=== PATIENT | male | born 1945 | race Caucasian/White ===

== ENCOUNTER 2017-05-06 13:03 | Inpatient (IN) | payer MEDICARE, BC ==
[2017-05-06] MEDS ORDERED: Furosemide 40 MG/4 ML VIAL IVPUSH ONE (13:08)
[2017-05-06] MEDS ORDERED: Sodium Chloride 0.9% 10 ML Syringe FLUSH PRN ×2 (13:08→18:09)
[2017-05-06] MEDS ORDERED: Furosemide 40 MG/4 ML VIAL ONE ×2 (13:09→13:11)
[2017-05-06] MEDS ORDERED: Nitroglycerin 0.4 MG Tab.SL SL ONE (13:14)
[2017-05-06] MEDS ORDERED: Albuterol/Ipratropium 3.0-0.5 MG/3 ML Neb Soln NEB ONE (13:23)
[2017-05-06] MEDS ORDERED: Albuterol/Ipratropium 3.0-0.5 MG/3 ML Neb Soln ONE (13:27)
--- NOTE | 2017-05-06 13:31 | EDM.PDOC ---
ED HPI GENERAL MEDICAL PROBLEM - General Chief Complaint: Cardiovascular Problem Stated Complaint: SOB Time Seen by Provider: 05/06/17 13:03 Source of Information: Reports: Patient, RN Notes Reviewed - History of Present Illness INITIAL COMMENTS - FREE TEXT/NARRATIVE: 71-year-old male has been brought in by private vehicle for difficulty breathing. The information I have is that he was pulled over at the side of the road or street sitting in his car. A bystander stop to check on him, observe that he was in respiratory distress and brought him here to the ED front entrance. Patient arrives very short of breath. Because of his severe difficulty breathing the history I am getting from him is quite limited at this time. This apparently just started not too long ago. He is Reported to be from [place] about 80 miles away from here. It is not clear at this time what brought him here to [place], perhaps came to watch the parade. He denies chest pain. He states that he has had some cough this morning. Rarely this all has just come on over the past 1-2 hours. He does admit to taking a water pill. He states he did take that today. At this time we do not know his meds. He gets those filled out of [facility]s is reportedly "on her way ". - Related Data Home Meds: Home Meds Albuterol [Proventil HFA] 6.7 gm INH Q4H PRN 05/06/17 [History] Allopurinol [Zyloprim] 100 mg PO DAILY 05/06/17 [History] Amiodarone [Cordarone] 200 mg PO DAILY 05/06/17 [History] Apixaban [Eliquis] 5 mg PO BID 05/06/17 [History] Ascorbic Acid [Vitamin C] 500 mg PO DAILY 05/06/17 [History] Aspirin [Halfprin] 81 mg PO DAILY 05/06/17 [History] Calcium Carbonate/Vitamin D2 [Calcium Oys Shell 250 MG] 1 each PO DAILY [History] [place] 1,000 mg PO DAILY 05/06/17 [History] Cinnamon Bark/Chromium Picolin [Cinnamon Plus Chromium Capsule] 1 each PO DAILY 05/06/17 [History] Ferrous Sulfate 325 mg PO DAILY 05/06/17 [History] Flaxseed Oil 1,000 mg PO DAILY 05/06/17 [History] Fluticasone/Salmeterol [Fluticasone-Salmeterol 113-14] 1 each IH BID 05/06/17 [ History] Furosemide 40 mg PO DAILY 05/06/17 [History] Isosorbide Mononitrate [Isosorbide Mononitrate ER] 30 mg PO DAILY 05/06/17 [ History] Loratadine [Claritin] 10 mg PO DAILY 05/06/17 [History] Metoprolol Succinate [Toprol Xl] 25 mg PO DAILY 05/06/17 [History] Multivitamin [Multivitamins] 1 tab PO DAILY 05/06/17 [History] [place]-3 Fatty Acids/Fish Oil [Cvs Fish Oil 1,000 mg Softgel] 1,000 mg PO BID 11/22 [History] Sodium Chloride [Saline Nasal [place]] 2 sprays NS Q2H PRN 05/06/17 [History] atorvaSTATin [Lipitor] 10 mg PO DAILY 05/06/17 [History] glipiZIDE [Glipizide ER] 5 mg PO DAILY 05/06/17 [History] Past Medical History HEENT History: Reports: Impaired Vision Cardiovascular History: Reports: Heart Failure Respiratory History: Reports: Asthma, COPD - Past Surgical History HEENT Surgical History: Reports: Adenoidectomy, Tonsillectomy GI Surgical History: Reports: Appendectomy, Cholecystectomy Social & Family History - Tobacco Use Smoking Status *Q: Former Smoker Used Tobacco, but Quit: Yes Month Tobacco Last Used: 30 yr - Caffeine Use Caffeine Use: Reports: Coffee, Soda, Tea - Recreational Drug Use Recreational Drug Use: No ED ROS GENERAL - Review of Systems Review Of Systems: See Below Constitutional: Denies: Fever, Diaphoresis HEENT: Denies: Sinus Problem, Throat Pain Respiratory: Reports: Shortness of Breath (Severe), Wheezing, Cough. Denies: Sputum Cardiovascular: Reports: Lightheadedness. Denies: Chest Pain GI/Abdominal: Denies: Abdominal Pain, Nausea, Vomiting Musculoskeletal: Denies: Neck Pain, Shoulder Pain, Arm Pain Neurological: Reports: Dizziness, Trouble Speaking (Patient does have some difficulty speaking due to severe shortness of breath), Weakness (Generalized) ED EXAM, GENERAL - Physical Exam Exam: See Below General Appearance: Alert, Severe Distress Eye Exam: Bilateral Eye: PERRL Throat/Mouth: Normal Inspection, Normal Oropharynx Head: Atraumatic. No: Facial Swelling Neck: Supple, Other Respiratory/Chest: Respiratory Distress (Severe, respiratory rate on arrival in the 40s), Rales, Rhonchi (Bilateral), Wheezing ( bilateralbilateral ) Cardiovascular: Regular Rate, Rhythm GI/Abdominal: Soft, Non-Tender. No: Guarding Back Exam: No: CVA Tenderness (L), CVA Tenderness (R) Extremities: Pedal Edema (Moderate bilateral leg edema). No: Leg Pain, Redness Neurological: Alert, No Motor/Sensory Deficits Skin Exam: Warm, Dry, Normal Color EKG INTERPRETATION EKG Date: 05/06/17 Rhythm: A-Fib QRS: LBBB Comparison: NA - No Prior EKG Course - Vital Signs Last Recorded V/S: Last Vital Signs Temp 99.3 F 05/06/17 13:08 Pulse 83 05/06/17 13:08 Resp 52 H 05/06/17 13:08 BP 178/67 H 05/06/17 13:40 Pulse Ox 97 05/06/17 13:32 - Orders/Labs/Meds Orders: Active Orders 24 hr Category Date Time Status EKG 12 Lead [EKG Documentation Completion] [RC] STAT Care 05/06/17 13:08 Active Oxygen Therapy [RC] ASDIRECTED Care 05/06/17 13:08 Active Peripheral IV Care [RC] . DIRECTED Care 05/06/17 13:09 Active RT Aerosol Therapy [RC] ASDIRECTED Care 05/06/17 13:23 Active Chest 1V Frontal [CR] Stat Exams 05/06/17 13:08 Taken CULTURE BLOOD [BC] Stat Lab 05/06/17 13:45 Received Sodium Chloride 0.9% [Saline Flush] Med 05/06/17 13:08 Active 10 ml FLUSH ASDIRECTED PRN Peripheral IV Insertion Adult [OM.PC] Stat Oth 05/06/17 13:08 Ordered Medication Orders Sodium Chloride (Saline Flush) 10 ml FLUSH ASDIRECTED PRN PRN Reason: Keep Vein Open Last Admin: 05/06/17 13:39 Dose: 10 ml Labs: Laboratory Tests 05/06/17 05/06/17 05/06/17 Range/Units 13:10 13:10 13:10 WBC 11.08 H (4.23-9.07) K/mm3 RBC 3.89 L (4.63-6.08) M/mm3 Hgb 11.9 L (13.7-17.5) gm/L Hct 37.3 L (40.1-51.0) % MCV 95.9 H (79.0-92.2) fl MCH 30.6 (25.7-32.2) pg MCHC 31.9 L (32.2-35.5) g/dl RDW Std Deviation 54.3 H (35.1-43.9) fL Plt Count 156 L (163-337) K/mm3 MPV 11.6 (9.4-12.3) fl Neut % (Auto) 82.1 H (34.0-67.9) % Lymph % (Auto) 7.8 L (21.8-53.1) % [place] % (Auto) 7.7 (5.3-12.2) % Eos % (Auto) 1.9 (0.8-7.0) Baso % (Auto) 0.4 (0.1-1.2) % Neut # (Auto) 9.11 H (1.78-5.38) K/mm3 Lymph # (Auto) 0.86 L (1.32-3.57) K/mm3 [place] # (Auto) 0.85 H (0.30-0.82) K/mm3 Eos # (Auto) 0.21 (0.04-0.54) K/mm3 Baso # (Auto) 0.04 (0.01-0.08) K/mm3 Manual Slide Review Abnormal smear PT 11.7 (8.0-13.0) SECONDS INR 1.07 Puncture Site ABG pH (7.35-7.45) ABG pCO2 (35.0-45.0) mmHg ABG pO2 (80.0-100.0) mmHg ABG HCO3 (22.0-26.0) meq/L ABG O2 Saturation (96.0-97.0) % ABG Base Excess (-2-2.0) O2 Delivery Device Oxygen Flow Rate FiO2 (21.00-100.00) % Sodium (136-145) mEq/L Potassium (3.5-5.1) mEq/L Chloride (98-107) mEq/L Carbon Dioxide (21-32) mEq/L Anion Gap (5-15) BUN (7-18) mg/dL Creatinine (0.7-1.3) mg/dL Est Cr Clr Drug Dosing mL/min Estimated GFR (MDRD) (>60) mL/min BUN/Creatinine Ratio (14-18) Glucose (80-115) mg/dL Lactic Acid (0.4-2.0) mmol/L Calcium (8.5-10.1) mg/dL Total Bilirubin (0.2-1.0) mg/dL AST (15-37) U/L ALT (16-63) U/L Alkaline Phosphatase (46-116) U/L Troponin I (0.00-0.056) ng/mL C-Reactive Protein (<1.0) mg/dL B-Natriuretic Peptide 2997 H (0-100) pg/mL Total Protein (6.4-8.2) g/dl Albumin (3.4-5.0) g/dl Globulin gm/dL Albumin/Globulin Ratio (1-2) 05/06/17 05/06/17 05/06/17 Range/Units 13:45 13:45 13:45 WBC (4.23-9.07) K/mm3 RBC (4.63-6.08) M/mm3 Hgb (13.7-17.5) gm/L Hct (40.1-51.0) % MCV (79.0-92.2) fl MCH (25.7-32.2) pg MCHC (32.2-35.5) g/dl RDW Std Deviation (35.1-43.9) fL Plt Count (163-337) K/mm3 MPV (9.4-12.3) fl Neut % (Auto) (34.0-67.9) % Lymph % (Auto) (21.8-53.1) % [place] % (Auto) (5.3-12.2) % Eos % (Auto) (0.8-7.0) Baso % (Auto) (0.1-1.2) % Neut # (Auto) (1.78-5.38) K/mm3 Lymph # (Auto) (1.32-3.57) K/mm3 [place] # (Auto) (0.30-0.82) K/mm3 Eos # (Auto) (0.04-0.54) K/mm3 Baso # (Auto) (0.01-0.08) K/mm3 Manual Slide Review PT (8.0-13.0) SECONDS INR Puncture Site ABG pH (7.35-7.45) ABG pCO2 (35.0-45.0) mmHg ABG pO2 (80.0-100.0) mmHg ABG HCO3 (22.0-26.0) meq/L ABG O2 Saturation (96.0-97.0) % ABG Base Excess (-2-2.0) O2 Delivery Device Oxygen Flow Rate FiO2 (21.00-100.00) % Sodium 137 (136-145) mEq/L Potassium 4.6 (3.5-5.1) mEq/L Chloride 101 (98-107) mEq/L Carbon Dioxide 27 (21-32) mEq/L Anion Gap 13.6 (5-15) BUN 35 H (7-18) mg/dL Creatinine 1.7 H (0.7-1.3) mg/dL Est Cr Clr Drug Dosing 45.69 mL/min Estimated GFR (MDRD) 40 (>60) mL/min BUN/Creatinine Ratio 20.6 H (14-18) Glucose 153 H (80-115) mg/dL Lactic Acid 1.1 (0.4-2.0) mmol/L Calcium 8.9 (8.5-10.1) mg/dL Total Bilirubin 0.9 (0.2-1.0) mg/dL AST 46 H (15-37) U/L ALT 53 (16-63) U/L Alkaline Phosphatase 153 H (46-116) U/L Troponin I 0.060 H* (0.00-0.056) ng/mL C-Reactive Protein 7.5 H* (<1.0) mg/dL B-Natriuretic Peptide (0-100) pg/mL Total Protein 7.4 (6.4-8.2) g/dl Albumin 3.6 (3.4-5.0) g/dl Globulin 3.8 gm/dL Albumin/Globulin Ratio 1.0 (1-2) 05/06/17 Range/Units 15:10 WBC (4.23-9.07) K/mm3 RBC (4.63-6.08) M/mm3 Hgb (13.7-17.5) gm/L Hct (40.1-51.0) % MCV (79.0-92.2) fl MCH (25.7-32.2) pg MCHC (32.2-35.5) g/dl RDW Std Deviation (35.1-43.9) fL Plt Count (163-337) K/mm3 MPV (9.4-12.3) fl Neut % (Auto) (34.0-67.9) % Lymph % (Auto) (21.8-53.1) % [place] % (Auto) (5.3-12.2) % Eos % (Auto) (0.8-7.0) Baso % (Auto) (0.1-1.2) % Neut # (Auto) (1.78-5.38) K/mm3 Lymph # (Auto) (1.32-3.57) K/mm3 [place] # (Auto) (0.30-0.82) K/mm3 Eos # (Auto) (0.04-0.54) K/mm3 Baso # (Auto) (0.01-0.08) K/mm3 Manual Slide Review PT (8.0-13.0) SECONDS INR Puncture Site Rt radial ABG pH 7.47 H (7.35-7.45) ABG pCO2 35.3 (35.0-45.0) mmHg ABG pO2 60.0 L (80.0-100.0) mmHg ABG HCO3 25.2 (22.0-26.0) meq/L ABG O2 Saturation 93.0 L (96.0-97.0) % ABG Base Excess 2.2 H (-2-2.0) O2 Delivery Device Nasal cannula Oxygen Flow Rate 4.0 FiO2 0.00 L (21.00-100.00) % Sodium (136-145) mEq/L Potassium (3.5-5.1) mEq/L Chloride (98-107) mEq/L Carbon Dioxide (21-32) mEq/L Anion Gap (5-15) BUN (7-18) mg/dL Creatinine (0.7-1.3) mg/dL Est Cr Clr Drug Dosing mL/min Estimated GFR (MDRD) (>60) mL/min BUN/Creatinine Ratio (14-18) Glucose (80-115) mg/dL Lactic Acid (0.4-2.0) mmol/L Calcium (8.5-10.1) mg/dL Total Bilirubin (0.2-1.0) mg/dL AST (15-37) U/L ALT (16-63) U/L Alkaline Phosphatase (46-116) U/L Troponin I (0.00-0.056) ng/mL C-Reactive Protein (<1.0) mg/dL B-Natriuretic Peptide (0-100) pg/mL Total Protein (6.4-8.2) g/dl Albumin (3.4-5.0) g/dl Globulin gm/dL Albumin/Globulin Ratio (1-2) Meds: Medications Generic Name Dose Route Start Last Admin Trade Name Fremayela PRN Reason Stop Dose Admin Sodium Chloride 10 ml 05/06/17 13:08 05/06/17 13:39 Saline Flush FLUSH 10 ml ASDIRECTED PRN Administration Keep Vein Open Discontinued Medications Generic Name Dose Route Start Last Admin Trade Name Fremayela PRN Reason Stop Dose Admin Albuterol/Ipratropium 3 ml 05/06/17 13:23 05/06/17 13:31 Duoneb 3.0-0.5 Mg/3 Ml NEB 05/06/17 13:24 3 ml ONETIME ONE Administration Albuterol/Ipratropium Confirm 05/06/17 13:27 05/06/17 13:41 Duoneb 3.0-0.5 Mg/3 Ml Administered 05/06/17 13:28 Not Given Dose 3 ml .ROUTE .STK-MED ONE Furosemide Confirm 05/06/17 13:09 05/06/17 13:34 Lasix Administered 05/06/17 13:10 Not Given Dose 80 mg .ROUTE .STK-MED ONE Furosemide 80 mg 05/06/17 13:08 05/06/17 13:39 Lasix IVPUSH 05/06/17 13:09 80 mg NOW ONE Administration Furosemide Confirm 05/06/17 13:11 05/06/17 13:34 Lasix Administered 05/06/17 13:12 Not Given Dose 80 mg .ROUTE .STK-MED ONE Methylprednisolone Sodium Succinate 125 mg 05/06/17 13:40 05/06/17 13:57 Solu-Medrol IVPUSH 05/06/17 13:41 125 mg ONETIME ONE Administration Nitroglycerin 0.4 mg 05/06/17 13:14 05/06/17 13:40 Nitrostat SL 05/06/17 13:15 0.4 mg ONETIME ONE Administration - Re-Assessments/Exams Free Text/Narrative Re-Assessment/Exam: 05/06/17 13:55. Starting to show some improvement. Breathing not quite asnoisy and labored. Have given Lasix 80 mg IV. Have also given nitroglycerin 0.4 mg sublingual. We'll have RT do a dual neb. We will also plan to give Solu-Medrol IV. 14:40. Breathing much more comfortably. Still somewhat tachypneic. Chest x-ray shows cardiomegaly, pulmonary congestion compatible with CHF. Clinically he appeared to be in quite severe failure on arrival. Of note now that he is feeling better and able to give more history I asked what brings him to [place]. He realizes now that he is in [place] but initially thought he was in "[place]" 05/06/17 15:44. His has arrived, able to provide more information. She also has brought his meds are med list so at least we know understand what he is on. History of hypertension, coronary disease, COPD, CHF and type 2 diabetes. He does have chronic atrial fibrillation, on eliquis for that. He does have history of frequent pneumonia in the past. His states that he does get confused when he is ill. He is moderately confused today. He still does not really know why he was out driving or where he was going. He ended up here in [place] about 80 miles from home. He is in congestive heart failure. He has been treated for that as noted above. Breathing is much better at this time but he is still to Make with respiratory rate 24-28. Gases are as documented on 4 L nasal cannula. I do not see a definite infiltrate on his chest x-ray. Blood culture 1 has been obtained. Will admit for further evaluation and treatment. Departure - Departure Time of Disposition: 16:23 Disposition: Admitted As Inpatient 67 Condition: Serious Clinical Impression: Hypoxia Congestive heart failure Qualifiers: Congestive heart failure type: combined Congestive heart failure chronicity: acute on chronic Qualified Code(s): I50.43 - Acute on chronic combined systolic (congestive) and diastolic (congestive) heart failure Atrial fibrillation Qualifiers: Atrial fibrillation type: chronic Qualified Code(s): I48.2 - Chronic atrial fibrillation Referrals: PCP,Not In Area [Primary Care Provider] - Forms: ED Department Discharge ED Communication - Discussed Case With (1) Discussed Case With (1): Admitting Provider (Dr Arceo, decision to admit at about 16:24.) - My Orders Last 24 Hours: My Active Orders 05/06/17 13:08 EKG 12 Lead [EKG Documentation Completion] [RC] STAT Oxygen Therapy [RC] ASDIRECTED Chest 1V Frontal [CR] Stat Sodium Chloride 0.9% [Saline Flush] 10 ml FLUSH ASDIRECTED PRN Peripheral IV Insertion Adult [OM.PC] Stat 05/06/17 13:09 Peripheral IV Care [RC] . DIRECTED 05/06/17 13:23 RT Aerosol Therapy [RC] ASDIRECTED 05/06/17 13:45 CULTURE BLOOD [BC] Stat - Assessment/Plan Last 24 Hours: My Active Orders 05/06/17 13:08 EKG 12 Lead [EKG Documentation Completion] [RC] STAT Oxygen Therapy [RC] ASDIRECTED Chest 1V Frontal [CR] Stat Sodium Chloride 0.9% [Saline Flush] 10 ml FLUSH ASDIRECTED PRN Peripheral IV Insertion Adult [OM.PC] Stat 05/06/17 13:09 Peripheral IV Care [RC] . DIRECTED 05/06/17 13:23 RT Aerosol Therapy [RC] ASDIRECTED 05/06/17 13:45 CULTURE BLOOD [BC] Stat
[2017-05-06] MEDS ORDERED: methylPREDNISolone Sodium Succinate 125 MG/2 ML SDV IVPUSH ONE (13:40)
--- NOTE | 2017-05-06 17:21 | PCM.HP ---
H&P History of Present Illness - General Date of Service: 05/06/17 Admit Problem/Dx: Admission Diagnosis/Problem Admission Diagnosis/Problem Congestive heart failure Source of Information: Patient, Family, Provider, RN Notes Reviewed History Limitations: Reports: Respiratory Distress - History of Present Illness Initial Comments - Free Text/Narative: This is a 71-year-old elderly white male with past medical history of asthma/ COPD, chronic atrial fibrillation on amiodarone and eliquis, goutiron deficiency anemia, allergic rhinitis, hyperlipidemia/coronary artery disease, and type 2 diabetes who comes in to the emergency department with complaints of difficulty breathing. Per ED documentation, a bystander found him at the side of the road inside his car in respiratory distress. He was brought over via private vehicle to the emergency department for further evaluation. Patient carries a history of heart failure with unknown EF. He has not been seen here before and we do not have any available documentations or baseline comparison. His symptom started not too long ago and is now affecting his routine daily activities. Patient also has had history of bradycardia/sick sinus syndrome and he is scheduled for a pacemaker placement according to his . He follows a shade matcher in [facility] [place]. Patient is taking his medication routinely. He denies any changes on his home maintenance medication. He is not on any oxygen or any noninvasive breathing machine at home. His initial workup in the emergency department shows a CBC remarkable for WBC of 11.08, hemoglobin of 11.9, hematocrit of 37.3, platelet count of 156, and neutrophil count of 9.11. His chemistry is remarkable for BUN of 35, creatinine of 1.7, glucose of 153, AST of 46, alkaline phosphatase of 153 , troponin x1 of 0.060, CRP of 7.5 and BNP of 2997. His chest x-ray shows enlarged heart and bilateral pulmonary congestion. She is being admitted for acute congestive heart failure. He scored his status is full. - Related Data Allergies/Adverse Reactions: Allergies Allergy/AdvReac Type Severity Reaction Status Date / Time PRIMO Inhibitors Allergy Other Verified 05/06/17 17:12 losartan [From Cozaar] Allergy Other Verified 05/06/17 17:12 Penicillins Allergy Other Verified 05/06/17 17:12 Home Medications: Home Meds Albuterol [Proventil HFA] 6.7 gm INH Q4H PRN 05/06/17 [History] Allopurinol [Zyloprim] 100 mg PO DAILY 05/06/17 [History] Amiodarone [Cordarone] 200 mg PO DAILY 05/06/17 [History] Apixaban [Eliquis] 5 mg PO BID 05/06/17 [History] Ascorbic Acid [Vitamin C] 500 mg PO DAILY 05/06/17 [History] Aspirin [Halfprin] 81 mg PO DAILY 05/06/17 [History] Calcium Carbonate/Vitamin D2 [Calcium Oys Shell 250 MG] 1 each PO DAILY [History] [place] 1,000 mg PO DAILY 05/06/17 [History] Cinnamon Bark/Chromium Picolin [Cinnamon Plus Chromium Capsule] 1 each PO DAILY 05/06/17 [History] Ferrous Sulfate 325 mg PO DAILY 05/06/17 [History] Flaxseed Oil 1,000 mg PO DAILY 05/06/17 [History] Fluticasone/Salmeterol [Fluticasone-Salmeterol 113-14] 1 each IH BID 05/06/17 [ History] Furosemide 40 mg PO DAILY 05/06/17 [History] Isosorbide Mononitrate [Isosorbide Mononitrate ER] 30 mg PO DAILY 05/06/17 [ History] Loratadine [Claritin] 10 mg PO DAILY 05/06/17 [History] Metoprolol Succinate [Toprol Xl] 25 mg PO DAILY 05/06/17 [History] Multivitamin [Multivitamins] 1 tab PO DAILY 05/06/17 [History] [place]-3 Fatty Acids/Fish Oil [Cvs Fish Oil 1,000 mg Softgel] 1,000 mg PO BID 11/22 [History] Sodium Chloride [Saline Nasal [place]] 2 sprays NS Q2H PRN 05/06/17 [History] atorvaSTATin [Lipitor] 10 mg PO DAILY 05/06/17 [History] glipiZIDE [Glipizide ER] 5 mg PO DAILY 05/06/17 [History] Past Medical History HEENT History: Reports: Impaired Vision Cardiovascular History: Reports: Heart Failure Respiratory History: Reports: Asthma, COPD - Past Surgical History HEENT Surgical History: Reports: Adenoidectomy, Tonsillectomy GI Surgical History: Reports: Appendectomy, Cholecystectomy Social & Family History - Tobacco Use Smoking Status *Q: Former Smoker Used Tobacco, but Quit: Yes Month Tobacco Last Used: 30 yr - Caffeine Use Caffeine Use: Reports: Coffee, Soda, Tea - Recreational Drug Use Recreational Drug Use: No H&P Review of Systems - Review of Systems: Review Of Systems: See Below General: Reports: Fever, Diaphoresis. Denies: Chills HEENT: Reports: No Symptoms Pulmonary: Reports: Shortness of Breath, Wheezing. Denies: Pleuritic Chest Pain , Cough Cardiovascular: Reports: Dyspnea on Exertion, Lightheadedness. Denies: Chest Pain Gastrointestinal: Denies: Abdominal Pain, Nausea, Vomiting Genitourinary: Reports: No Symptoms Musculoskeletal: Reports: No Symptoms Skin: Denies: Cyanosis, Erythema, Wound, Lesions Psychiatric: Denies: Confusion, Depression, Anxiety, Hallucinations Neurological: Denies: Difficulty Walking, Weakness, Gait Disturbance Hematologic/Lymphatic: Reports: Easy Bleeding, Easy Bruising Immunologic: Reports: No Symptoms Exam - Exam Exam: See Below - Vital Signs Vital Signs: Last Vital Signs Temp 37.4 C 05/06/17 13:08 Pulse 83 05/06/17 13:08 Resp 52 H 05/06/17 13:08 BP 178/67 H 05/06/17 13:40 Pulse Ox 97 05/06/17 13:32 Weight: 90.718 kg - Exam Quality Assessment: Supplemental Oxygen General: Alert, Oriented, Cooperative, Moderate Distress HEENT: Conjunctiva Clear, EACs Clear, EOMI, Hearing Intact, Mucosa Moist & [place] , Nares Patent, Normal Nasal Septum, Posterior Pharynx Clear, Pupils Equal, Pupils Reactive Neck: Supple, Trachea Midline, Full Range of Motion. No: JVD Lungs: Normal Respiratory Effort, Decreased Breath Sounds, Rales, Rhonchi, Wheezing Cardiovascular: Irregular Rhythm Abdomen: Normal Bowel Sounds, Soft, Other (Obese). No: Tenderness (Male) Exam: Deferred Rectal (Males) Exam: Deferred Back Exam: Normal Inspection, Decreased Range of Motion Extremities: Normal Inspection, Normal Pulses, Edema (trace). No: Clubbing, Cyanosis, Calf Tenderness Peripheral Pulses: 2+: Posterior Tibial (L), Posterior Tibial (R), Dorsalis Pedis (L), Dorsalis Pedis (R) Skin: Warm, Dry, Intact Neuro Extensive - Mental Status: Oriented x3, Normal Cognition, Memory Intact Neuro Extensive - Motor, Sensory, Reflexes: CN II-XII Intact (limited due to respiratory distress), Abnormal Gait Psychiatric: Alert, Normal Affect, Anxious. No: Depressed, Suicidal Ideation - Patient Data Result Diagrams: 05/06/17 13:10 05/06/17 13:45 EKG INTERPRETATION EKG Date: 05/06/17 Time: 13:11 Rhythm: A-Fib Rate (Beats/Min): 73 QRS: LBBB Comparison: NA - No Prior EKG *Q Meaningful Use (ADM) - VTE *Q VTE Criteria *Q: - Stroke *Q Stroke Criteria *Q: - AMI *Q AMI Criteria *Q: Problem List Initiated/Reviewed/Updated: Yes Orders Last 24hrs: Active Orders 24 hr Category Date Time Status Admission Status [Patient Status] [ADT] Routine ADT 05/06/17 16:56 Active Medication Orders Sodium Chloride (Saline Flush) 10 ml FLUSH ASDIRECTED PRN PRN Reason: Keep Vein Open Last Admin: 05/06/17 13:39 Dose: 10 ml Assessment/Plan Comment:: Assessment/Plan: Acute: HF w/ unknown EF status - BNP 1996 - He has hx/o HF per patient and - No avail data in our EHR - HF protocol: routine weight check, Is/Os with uyan catheter, diuretic ( lasix drip and hctz), 2d echo in am, and salt/fluid restriction - Repeat BNP and TFT in am - PRN Morphine and Supplemental O2 Respiratory Distress - 2/2 Pulmonary vascular congestion from above - Supplemental O2, diuretics and Morphine IVP PRN Slightly Elevated Troponin Level - 0.060 initial - CE x 2 more and EKG in AM Mild Leukocytosis - Likely from stress - Will monitor Chronic: Atrial Fibrillation, HR controlled, on Amdiodarone, BB and Eliquis COPD/Asthma, Albuterol and Fluticasone/Salmeterol HLD/CAD, ASA, Fish Oil and Statin DM2 on glipizide Gout, Allopurinol CHELSIE, Iron pill and Vit C Allergic Rhinitis, Loratadine Hx/o Bradycardia/SSS pending pacemaker placement per (he sees a shade matcher in [place]) CKD Stage 3 (no baseline) Plan: Admit to ICU Resume Home Meds except diuretic Routine AM Labs Accu-check AM/HS with ISS medium level A1C level in am Lasix drip with hctz PT/OT consult DVT ppx: already on eliquis SW/CM for d/c planning Additional orders as above Code status:1 Prognosis is guarded-serious
[2017-05-06] MEDS ORDERED: Acetaminophen 325 MG Tab PO PRN (17:36)
[2017-05-06] MEDS ORDERED: Acetaminophen/HYDROcodone 325-5 MG Tab PO PRN (17:36)
[2017-05-06] MEDS ORDERED: Morphine 2 MG/ML Syringe IVPUSH PRN (17:36)
[2017-05-06] MEDS ORDERED: Polyethylene Glycol 3350 Powder 17 GM Packet PO PRN (18:09)
[2017-05-06] MEDS ORDERED: LORazepam 2 MG/ML MDV IV PRN (18:09)
[2017-05-06] MEDS ORDERED: Promethazine 12.5 MG in Sodium Chloride 0.9% 50 ML IV PRN (18:09)
[2017-05-06] MEDS ORDERED: Temazepam 7.5 MG Cap PO PRN (18:09)
[2017-05-06] MEDS ORDERED: Docusate Sodium 100 MG Cap PO PRN (18:09)
[2017-05-06] MEDS ORDERED: Ondansetron 4 MG/2 ML SDV IV PRN (18:09)
[2017-05-06] MEDS ORDERED: Bisacodyl 5 MG Tab PO PRN (18:09)
[2017-05-06] MEDS ORDERED: Sodium Chloride 0.65% Nasal Spray 45 ML Bottle NASBOTH PRN (18:15)
[2017-05-06] MEDS ORDERED: Albuterol 6.7 GM Inhaler INH PRN (18:15)
[2017-05-06] MEDS ORDERED: Metoprolol Tartrate 5 MG/5 ML SDV IVPUSH PRN (18:19)
[2017-05-06] MEDS ORDERED: hydrALAZINE 20 MG/ML SDV IVPUSH PRN (18:19)
[2017-05-06] MEDS ORDERED: Magnesium Sulfate/Water 2 GM in Premix Bag 1 BAG IV ONE (19:00)
[2017-05-06] MEDS: Furosemide 100 MG in Sodium Chloride 0.9% 90 ML IV SCH (19:52)
[2017-05-06] MEDS: Fish Oil/Omega-3 Fatty Acids 1 Gm Cap PO SCH (20:15)
[2017-05-06] MEDS ORDERED: 50% Dextrose in Water 50 ML Syringe IVPUSH PRN (20:20)
[2017-05-06] MEDS: Apixaban 5 MG Tab PO SCH (20:52)
[2017-05-06] MEDS: Albuterol/Ipratropium 3.0-0.5 MG/3 ML Neb Soln NEB PRN (20:54)
[2017-05-06] MEDS: Formoterol/Mometasone 200-5 MCG 8.8 GM Inhaler IH SCH (20:57)
[2017-05-06] MEDS ORDERED: ALBUTEROL INH PRN (21:42)
[2017-05-06] MEDS: Insulin Aspart 100 Units/ML 3 ML Pen SUBCUT SCH (21:50)
[2017-05-07] MEDS: Hydrochlorothiazide 12.5 MG Cap PO SCH ×2 (06:15→13:59)
[2017-05-07] MEDS: Albuterol/Ipratropium 3.0-0.5 MG/3 ML Neb Soln NEB PRN ×2 (06:22→20:24)
[2017-05-07] MEDS: Insulin Aspart 100 Units/ML 3 ML Pen SUBCUT SCH ×2 (07:42→20:56)
[2017-05-07] MEDS: Isosorbide Mononitrate 30 MG Tab.ER PO SCH (08:00)
[2017-05-07] MEDS: Calcium Carbonate/Vitamin D3 1500 MG-200 Units Tab PO SCH (08:00)
[2017-05-07] MEDS: Loratadine 10 MG Tab PO SCH (08:00)
[2017-05-07] MEDS: glipiZIDE 5 MG Tab.ER PO SCH (08:00)
[2017-05-07] MEDS: Apixaban 5 MG Tab PO SCH ×2 (08:00→20:14)
[2017-05-07] MEDS: Ascorbic Acid 500 MG Tab PO SCH (08:00)
[2017-05-07] MEDS: Amiodarone 200 MG Tab PO SCH (08:00)
[2017-05-07] MEDS: Multivitamins,Therapeutic Tab PO SCH (08:00)
[2017-05-07] MEDS: Aspirin 81 MG Tab.EC PO SCH (08:00)
[2017-05-07] MEDS: Ferrous Sulfate 325 MG Tab PO SCH (08:00)
[2017-05-07] MEDS: Allopurinol 100 MG Tab PO SCH (08:00)
[2017-05-07] MEDS: Fish Oil/Omega-3 Fatty Acids 1 Gm Cap PO SCH ×2 (08:00→20:14)
[2017-05-07] MEDS: Metoprolol Succinate 25 MG Tab.ER PO SCH (08:01)
[2017-05-07] MEDS: Simvastatin 10 MG Tab PO SCH (08:05)
[2017-05-07] MEDS ORDERED: Enoxaparin 40 MG/0.4 ML Syringe SUBCUT SCH (09:00)
[2017-05-07] MEDS: Formoterol/Mometasone 200-5 MCG 8.8 GM Inhaler IH SCH ×2 (09:28→20:25)
--- NOTE | 2017-05-07 10:58 | PCM.PN ---
- General Info Date of Service: 05/07/17 Admission Dx/Problem (Free Text): Admission Diagnosis/Problem Admission Diagnosis/Problem Congestive heart failure Subjective Update: Follow Up Functional Status: Reports: pain controlled, tolerating diet, ambulating, urinating. Denies: new symptoms - Review of Systems General: Denies: Fever, Weakness, Fatigue, Malaise, Chills HEENT: Reports: no symptoms Pulmonary: Denies: shortness of breath, pleuritic chest pain Cardiovascular: Denies: Chest Pain, Palpitations, Dyspnea on Exertion, Edema, Lightheadedness Gastrointestinal: Denies: Abdominal pain, Nausea, Vomiting Genitourinary: Reports: no symptoms Musculoskeletal: Reports: no symptoms Skin: Denies: cyanosis, mottled, diaphoresis Neurological: Denies: Confusion, Difficulty Walking, Weakness, Gait Disturbance Psychiatric: Denies: depression, anxiety Systems Review Comment:: No overnight or acute issues. He slept good last night. He feels better now. He is sating well now on RA. He had about 1700 total urine output so far. He looks comfortable sitting up on a chair. - Patient Data Vitals - most recent: Last Vital Signs Temp 36.6 C 05/07/17 08:00 Pulse 77 05/07/17 08:01 Resp 18 05/07/17 08:00 BP 137/67 05/07/17 08:01 Pulse Ox 97 05/07/17 09:28 Weight - most recent: 119.476 kg I&O - last 24 hours: Intake & Output 05/06/17 05/07/17 05/07/17 22:59 06:59 14:59 Intake Total 300 316 250 Output Total 950 500 205 Balance -650 -184 45 Lab Results last 24 hrs: Laboratory Results - last 24 hr 05/06/17 05/06/17 05/07/17 Range/Units 19:51 22:23 05:57 WBC 16.66 H (4.23-9.07) K/mm3 RBC 3.64 L (4.63-6.08) M/mm3 Hgb 11.1 L (13.7-17.5) gm/L Hct 34.7 L (40.1-51.0) % MCV 95.3 H (79.0-92.2) fl MCH 30.5 (25.7-32.2) pg MCHC 32.0 L (32.2-35.5) g/dl RDW Std Deviation 53.0 H (35.1-43.9) fL Plt Count 130 L (163-337) K/mm3 MPV 11.1 (9.4-12.3) fl Neut % (Auto) 95.5 H (34.0-67.9) % Lymph % (Auto) 2.9 L (21.8-53.1) % [place] % (Auto) 1.4 L (5.3-12.2) % Eos % (Auto) 0 L (0.8-7.0) Baso % (Auto) 0.0 L (0.1-1.2) % Neut # (Auto) 15.91 H (1.78-5.38) K/mm3 Lymph # (Auto) 0.48 L (1.32-3.57) K/mm3 [place] # (Auto) 0.23 L (0.30-0.82) K/mm3 Eos # (Auto) 0.00 L (0.04-0.54) K/mm3 Baso # (Auto) 0.00 L (0.01-0.08) K/mm3 Manual Slide Review Abnormal smear Sodium (136-145) mEq/L Potassium (3.5-5.1) mEq/L Chloride (98-107) mEq/L Carbon Dioxide (21-32) mEq/L Anion Gap (5-15) BUN (7-18) mg/dL Creatinine (0.7-1.3) mg/dL Est Cr Clr Drug Dosing mL/min Estimated GFR (MDRD) (>60) mL/min BUN/Creatinine Ratio (14-18) Glucose (80-115) mg/dL POC Glucose 200 H (80-115) mg/dL Hemoglobin A1c (4.50-6.20) % Calcium (8.5-10.1) mg/dL Magnesium (1.8-2.4) mg/dl CK-MB (CK-2) 1.8 (0-3.6) ng/ml Troponin I 0.085 H* (0.00-0.056) ng/mL B-Natriuretic Peptide (0-100) pg/mL Triglycerides (<150) mg/dL Cholesterol (<200) mg/dL LDL Cholesterol Direct (<100) mg/dL HDL Cholesterol (40-59) mg/dL Free T4 (0.76-1.46) ng/dL TSH 3rd Generation (0.358-3.74) uIU/mL 05/07/17 05/07/17 05/07/17 Range/Units 05:57 05:57 05:57 WBC (4.23-9.07) K/mm3 RBC (4.63-6.08) M/mm3 Hgb (13.7-17.5) gm/L Hct (40.1-51.0) % MCV (79.0-92.2) fl MCH (25.7-32.2) pg MCHC (32.2-35.5) g/dl RDW Std Deviation (35.1-43.9) fL Plt Count (163-337) K/mm3 MPV (9.4-12.3) fl Neut % (Auto) (34.0-67.9) % Lymph % (Auto) (21.8-53.1) % [place] % (Auto) (5.3-12.2) % Eos % (Auto) (0.8-7.0) Baso % (Auto) (0.1-1.2) % Neut # (Auto) (1.78-5.38) K/mm3 Lymph # (Auto) (1.32-3.57) K/mm3 [place] # (Auto) (0.30-0.82) K/mm3 Eos # (Auto) (0.04-0.54) K/mm3 Baso # (Auto) (0.01-0.08) K/mm3 Manual Slide Review Sodium 137 (136-145) mEq/L Potassium 4.3 (3.5-5.1) mEq/L Chloride 102 (98-107) mEq/L Carbon Dioxide 26 (21-32) mEq/L Anion Gap 13.3 (5-15) BUN 46 H (7-18) mg/dL Creatinine 1.9 H (0.7-1.3) mg/dL Est Cr Clr Drug Dosing 39.71 mL/min Estimated GFR (MDRD) 35 (>60) mL/min BUN/Creatinine Ratio 24.2 H (14-18) Glucose 270 H (80-115) mg/dL POC Glucose (80-115) mg/dL Hemoglobin A1c 6.60 H (4.50-6.20) % Calcium 8.2 L (8.5-10.1) mg/dL Magnesium 2.4 (1.8-2.4) mg/dl CK-MB (CK-2) 2.4 (0-3.6) ng/ml Troponin I 0.061 H* (0.00-0.056) ng/mL B-Natriuretic Peptide > 5000 H (0-100) pg/mL Triglycerides 27 (<150) mg/dL Cholesterol 108 (<200) mg/dL LDL Cholesterol Direct 46 (<100) mg/dL HDL Cholesterol 61.0 H (40-59) mg/dL Free T4 1.35 (0.76-1.46) ng/dL TSH 3rd Generation 1.388 (0.358-3.74) uIU/mL 05/07/17 Range/Units 05:58 WBC (4.23-9.07) K/mm3 RBC (4.63-6.08) M/mm3 Hgb (13.7-17.5) gm/L Hct (40.1-51.0) % MCV (79.0-92.2) fl MCH (25.7-32.2) pg MCHC (32.2-35.5) g/dl RDW Std Deviation (35.1-43.9) fL Plt Count (163-337) K/mm3 MPV (9.4-12.3) fl Neut % (Auto) (34.0-67.9) % Lymph % (Auto) (21.8-53.1) % [place] % (Auto) (5.3-12.2) % Eos % (Auto) (0.8-7.0) Baso % (Auto) (0.1-1.2) % Neut # (Auto) (1.78-5.38) K/mm3 Lymph # (Auto) (1.32-3.57) K/mm3 [place] # (Auto) (0.30-0.82) K/mm3 Eos # (Auto) (0.04-0.54) K/mm3 Baso # (Auto) (0.01-0.08) K/mm3 Manual Slide Review Sodium (136-145) mEq/L Potassium (3.5-5.1) mEq/L Chloride (98-107) mEq/L Carbon Dioxide (21-32) mEq/L Anion Gap (5-15) BUN (7-18) mg/dL Creatinine (0.7-1.3) mg/dL Est Cr Clr Drug Dosing mL/min Estimated GFR (MDRD) (>60) mL/min BUN/Creatinine Ratio (14-18) Glucose (80-115) mg/dL POC Glucose 204 H (80-115) mg/dL Hemoglobin A1c (4.50-6.20) % Calcium (8.5-10.1) mg/dL Magnesium (1.8-2.4) mg/dl CK-MB (CK-2) (0-3.6) ng/ml Troponin I (0.00-0.056) ng/mL B-Natriuretic Peptide (0-100) pg/mL Triglycerides (<150) mg/dL Cholesterol (<200) mg/dL LDL Cholesterol Direct (<100) mg/dL HDL Cholesterol (40-59) mg/dL Free T4 (0.76-1.46) ng/dL TSH 3rd Generation (0.358-3.74) uIU/mL Med Orders - Current: Current Medications Acetaminophen (Tylenol) 650 mg PO Q4H PRN PRN Reason: Pain (Mild 1-3)/fever Hydrocodone Bitart/Acetaminophen ([place] 325-5 Mg) 1 tab PO Q4H PRN PRN Reason: Pain (moderate 4-6) Albuterol (Proventil Hfa) 0 gm INH Q4H PRN PRN Reason: Wheezing Albuterol/Ipratropium (Duoneb 3.0-0.5 Mg/3 Ml) 3 ml NEB Q4H PRN PRN Reason: Shortness Of Breath/wheezing Last Admin: 05/07/17 06:22 Dose: 3 ml Allopurinol (Zyloprim) 100 mg PO DAILY [facility] Last Admin: 05/07/17 08:00 Dose: 100 mg Amiodarone HCl (Cordarone) 200 mg PO DAILY [facility] Last Admin: 05/07/17 08:00 Dose: 200 mg Apixaban (Eliquis) 5 mg PO BID [facility] Last Admin: 05/07/17 08:00 Dose: 5 mg Ascorbic Acid (Vitamin C) 500 mg PO DAILY [facility] Last Admin: 05/07/17 08:00 Dose: 500 mg Aspirin (Halfprin) 81 mg PO DAILY [facility] Last Admin: 05/07/17 08:00 Dose: 81 mg Bisacodyl (Dulcolax) 5 mg PO DAILY PRN PRN Reason: Constipation Calcium Carbonate (Calcium Carbonate/Vitamin D 1500 Mg-200 Unit) 1 tab PO DAILY [facility] Last Admin: 05/07/17 08:00 Dose: 1 tab Dextrose/Water (Dextrose 50% In Water) 50 ml IVPUSH ASDIRECTED PRN PRN Reason: Hypoglycemia Docusate Sodium (Colace) 100 mg PO BID PRN PRN Reason: Constipation Ferrous Sulfate (Ferrous Sulfate) 325 mg PO DAILY [facility] Last Admin: 05/07/17 08:00 Dose: 325 mg Fish Oil (Fish Oil) 1 gm PO BID [facility] Last Admin: 05/07/17 08:00 Dose: 1 gm Glipizide (Glucotrol Xl) 5 mg PO DAILY [facility] Last Admin: 05/07/17 08:00 Dose: 5 mg Hydralazine HCl (Apresoline) 20 mg IVPUSH Q4H PRN PRN Reason: Hypertension Hydrochlorothiazide (Hydrochlorothiazide) 12.5 mg PO BIDDIURETIC [facility] Last Admin: 05/07/17 06:15 Dose: 12.5 mg Promethazine HCl 12.5 mg/ (Sodium Chloride) 50.5 mls @ 100 mls/hr IV Q6H PRN PRN Reason: Nausea/Vomiting Furosemide 100 mg/ Sodium (Chloride) 100 mls @ 4 mls/hr IV TITRATE [facility] PRN Reason: Protocol Last Infusion: 05/07/17 08:50 Dose: 5 mls/hr Insulin Aspart (Novolog) 0 unit SUBCUT ACBREAKFASTANDBED [facility] PRN Reason: Protocol Last Admin: 05/07/17 07:42 Dose: 4 units Isosorbide Mononitrate (Imdur) 30 mg PO DAILY [facility] Last Admin: 05/07/17 08:00 Dose: 30 mg Loratadine (Claritin) 10 mg PO DAILY [facility] Last Admin: 05/07/17 08:00 Dose: 10 mg Lorazepam (Ativan) 0.5 mg IV Q6H PRN PRN Reason: Anxiety Magnesium Sulfate (Pharmacy To Dose - Magnesium Replacement) 1 dose .XX ASDIRECTED [facility] Metoprolol Succinate (Toprol Xl) 25 mg PO DAILY [facility] Last Admin: 05/07/17 08:01 Dose: 25 mg Metoprolol Tartrate (Lopressor) 5 mg IVPUSH Q4H PRN PRN Reason: Tachycardia Mometasone Furoate/Formoterol Fumar (Dulera 200-5 Mcg) 1 puff IH BID [facility] Last Admin: 05/07/17 09:28 Dose: 1 puff Morphine Sulfate (Morphine) 1 mg IVPUSH Q4H PRN PRN Reason: Pain (severe 7-10) Stop: 05/10/17 18:09 Last Admin: 05/06/17 20:44 Dose: 1 mg Multivitamins (Thera) 1 each PO DAILY [facility] Last Admin: 05/07/17 08:00 Dose: 1 each Non-Formulary Medication (Cayenne [Cayenne]) 1,000 mg PO DAILY [facility] Non-Formulary Medication (Cinnamon Bark/Chromium Picolin [Cinnamon Plus Chromium Capsule]) 1 each PO DAILY [facility] Non-Formulary Medication (Flaxseed Oil) 1,000 mg PO DAILY [facility] Ondansetron HCl (Zofran) 4 mg IV Q6H PRN PRN Reason: Nausea/Vomiting Polyethylene Glycol (Miralax) 17 gm PO DAILY PRN PRN Reason: Constipation Potassium Chloride (Pharmacy To Dose - Potassium Replacement) 1 dose .XX ASDIRECTED [facility] Senna/Docusate Sodium (Senna Plus) 1 tab PO BID PRN PRN Reason: Constipation Simvastatin (Zocor) 10 mg PO DAILY [facility] Last Admin: 05/07/17 08:05 Dose: 10 mg Sodium Chloride (Saline Flush) 10 ml FLUSH ASDIRECTED PRN PRN Reason: Keep Vein Open Sodium Chloride ([employer] Nasal [place]) 0 ml NASBOTH Q2H PRN PRN Reason: Congestion Temazepam (Restoril) 7.5 mg PO BEDTIME PRN PRN Reason: Sleep Discontinued Medications Albuterol (Proventil Hfa) 0 gm INH Q4H PRN PRN Reason: Wheezing Albuterol/Ipratropium (Duoneb 3.0-0.5 Mg/3 Ml) 3 ml NEB ONETIME ONE Stop: 05/06/17 13:24 Last Admin: 05/06/17 13:31 Dose: 3 ml Albuterol/Ipratropium (Duoneb 3.0-0.5 Mg/3 Ml) Confirm Administered Dose 3 ml .ROUTE .STK-MED ONE Stop: 05/06/17 13:28 Last Admin: 05/06/17 13:41 Dose: Not Given Enoxaparin Sodium (Lovenox) 40 mg SUBCUT DAILY [facility] Furosemide (Lasix) Confirm Administered Dose 80 mg .ROUTE .STK-MED ONE Stop: 05/06/17 13:10 Last Admin: 05/06/17 13:34 Dose: Not Given Furosemide (Lasix) 80 mg IVPUSH NOW ONE Stop: 05/06/17 13:09 Last Admin: 05/06/17 13:39 Dose: 80 mg Furosemide (Lasix) Confirm Administered Dose 80 mg .ROUTE .STK-MED ONE Stop: 05/06/17 13:12 Last Admin: 05/06/17 13:34 Dose: Not Given Magnesium Sulfate 2 gm/ Premix 50 mls @ 50 mls/hr IV ONETIME ONE Stop: 05/06/17 19:59 Last Admin: 05/06/17 19:47 Dose: 50 mls/hr Methylprednisolone Sodium Succinate (Solu-Medrol) 125 mg IVPUSH ONETIME ONE Stop: 05/06/17 13:41 Last Admin: 05/06/17 13:57 Dose: 125 mg Nitroglycerin (Nitrostat) 0.4 mg SL ONETIME ONE Stop: 05/06/17 13:15 Last Admin: 05/06/17 13:40 Dose: 0.4 mg Sodium Chloride (Saline Flush) 10 ml FLUSH ASDIRECTED PRN PRN Reason: Keep Vein Open Last Admin: 05/06/17 13:39 Dose: 10 ml - Exam General: alert, oriented, cooperative, no acute distress HEENT: Pupils equal, Pupils reactive, EOMI, Mucous membr. moist/pink Neck: supple, trachea midline, no JVD, no thyromegaly Lungs: Normal respiratory effort, Decreased breath sounds, Rales, Rhonchi Cardiovascular: Irregular Rhythm Abdomen: bowel sounds present, soft, no tenderness, no distension (Male) Exam: Deferred Back Exam: Normal Inspection, Decreased Range of Motion Extremities: no edema, normal pulses, no tenderness/swelling, no clubbing, no cyanosis, no calf tenderness Peripheral Pulses: 2+: Dorsalis Pedis (L), Dorsalis Pedis (R) Skin: warm, dry, intact Neurological: no new focal deficit Psy/Mental Status: alert, normal affect, normal mood - Problem List Review Problem List Initiated/Reviewed/Updated: Yes - My Orders Last 24 Hours: My Active Orders 05/06/17 17:21 Oxygen Therapy [RC] PRN Vital Signs [RC] Q4HR Resuscitation Status Routine 05/06/17 17:36 Height and Weight [RC] 04 Up With Assistance [RC] ASDIRECTED Up ad Lakshmi [RC] ASDIRECTED Acetaminophen [Tylenol] 650 mg PO Q4H PRN Acetaminophen/HYDROcodone [Gillett 325-5 MG] 1 tab PO Q4H PRN Morphine 1 mg IVPUSH Q4H PRN Saline Lock Insert [OM.PC] Routine 05/06/17 18:08 Intake and Output [RC] Q2HR 05/06/17 18:09 Albuterol/Ipratropium [DuoNeb 3.0-0.5 MG/3 ML] 3 ml NEB Q4H PRN Bisacodyl [Dulcolax] 5 mg PO DAILY PRN Docusate Sodium [Colace] 100 mg PO BID PRN Docusate Sodium/Sennosides [Senna Plus] 1 tab PO BID PRN LORazepam [Ativan] 0.5 mg IV Q6H PRN Ondansetron [Zofran] 4 mg IV Q6H PRN Polyethylene Glycol 3350 [MiraLAX] 17 gm PO DAILY PRN Promethazine [Phenergan] 12.5 mg Sodium Chloride 0.9% [Normal Saline] 50 ml IV Q6H Sodium Chloride 0.9% [Saline Flush] 10 ml FLUSH ASDIRECTED PRN Temazepam [Restoril] 7.5 mg PO BEDTIME PRN 05/06/17 18:10 RT Aerosol Therapy [RC] ASDIRECTED 05/06/17 18:11 Consult to Case Management [CONS] Routine Consult to Credit Verification Clerk [CONS] Routine OT Evaluation and Treatment [CONS] Routine PT Evaluation and Treatment [CONS] Routine Respiratory Care Assess and Treatment [CONS] Routine 05/06/17 18:14 Urinary Catheter Assessment [RC] Q4HR 05/06/17 18:15 Yuan Catheter Insertion [Insert Urinary Catheter] [OM.PC] Q24H Furosemide [Lasix] 100 mg Sodium Chloride 0.9% [Normal Saline] 90 ml IV TITRATE Sodium Chloride 0.65% [[employer] Nasal [place]] 0 ml NASBOTH Q2H PRN 05/06/17 18:19 Metoprolol Tartrate [Lopressor] 5 mg IVPUSH Q4H PRN hydrALAZINE [Apresoline] 20 mg IVPUSH Q4H PRN 05/06/17 18:30 Magnesium Rep Pharmacy to Dose [Pharmacy to Dose - Magnesium Replacement] 1 dose .XX ASDIRECTED Potassium Rep Pharmacy to Dose [Pharmacy to Dose - Potassium Replacement] 1 dose .XX ASDIRECTED 05/06/17 20:19 Echo Comp wo Cont [US] Routine 05/06/17 20:20 Blood Glucose Check, Bedside [RC] Dextrose 50% in Water 50 ml IVPUSH ASDIRECTED PRN 05/06/17 21:00 Apixaban [Eliquis] 5 mg PO BID Fish Oil/[place]-3 Fatty Acids [Fish Oil] 1 gm PO BID Mometasone/Formoterol [Dulera 200-5 MCG] 1 puff IH BID 05/06/17 21:15 Insulin Aspart [NovoLOG] See Protocol SUBCUT ACBREAKFASTANDBED 05/06/17 21:42 Albuterol [Proventil HFA] 0 gm INH Q4H PRN 05/06/17 Dinner 2 Gram Sodium Diet [DIET] 05/07/17 06:00 Hydrochlorothiazide 12.5 mg PO BIDDIURETIC 05/07/17 07:00 EKG 12 Lead [EKG Documentation Completion] [RC] AM 05/07/17 09:00 Allopurinol [Zyloprim] 100 mg PO DAILY Amiodarone [Cordarone] 200 mg PO DAILY Ascorbic Acid [Vitamin C] 500 mg PO DAILY Aspirin [Halfprin] 81 mg PO DAILY Calcium Carbonate/Vitamin D3 [Calcium Carbonate/Vitamin D 1500 MG-200 Unit] 1 tab PO DAILY Cayenne [Cayenne] 1,000 mg PO DAILY Cinnamon Bark/Chromium Picolin [Cinnamon Plus Chromium Capsule] 1 each PO DAILY Ferrous Sulfate 325 mg PO DAILY Flaxseed Oil 1,000 mg PO DAILY Isosorbide Mononitrate [Imdur] 30 mg PO DAILY Loratadine [Claritin] 10 mg PO DAILY Metoprolol Succinate [Toprol XL] 25 mg PO DAILY Multivitamins,Therapeutic [Thera] 1 each PO DAILY Simvastatin [Zocor] 10 mg PO DAILY glipiZIDE [Glucotrol XL] 5 mg PO DAILY 05/08/17 05:11 Chest 2V [CR] AM BASIC METABOLIC PANEL,BMP [CHEM] AM CBC WITH AUTO DIFF [HEME] AM MAGNESIUM [CHEM] AM 05/09/17 05:11 BASIC METABOLIC PANEL,BMP [CHEM] AM CBC WITH AUTO DIFF [HEME] AM MAGNESIUM [CHEM] AM 05/10/17 05:11 BASIC METABOLIC PANEL,BMP [CHEM] AM CBC WITH AUTO DIFF [HEME] AM MAGNESIUM [CHEM] AM 05/11/17 05:11 CBC WITH AUTO DIFF [HEME] AM - Plan Plan:: Assessment/Plan: Acute: HF w/ unknown EF status, Appears improving - BNP 1996 - He has hx/o HF per patient and - No avail data in our EHR - HF protocol: routine weight check, Is/Os with yuan catheter, diuretic ( lasix drip and hctz), 2d echo in am, and salt/fluid restriction - Repeat BNP > 5000 - TFT wnl - PRN Morphine and Supplemental O2 S/p Respiratory Distress - 2/2 Pulmonary vascular congestion from above - Supplemental O2, diuretics and Morphine IVP PRN Slightly Elevated Troponin Level - Likely from Irregular rhythm - 0.060 initial - CE x 2: 0.085 and 0.061 - Repeat EKG: essentially no change from yesterday Leukocytosis - WBC 11k ---> now16k - Likely from stress plus steroid (Solumedrol 125 mg IVP x1 he received in ED ) - Continue to monitor - Check CRP in AM Chronic: Atrial Fibrillation, HR controlled, on Amdiodarone, BB and Eliquis COPD/Asthma, Albuterol and Fluticasone/Salmeterol HLD/CAD, ASA, Fish Oil and Statin DM2 on glipizide, A1C 6.6 Gout, Allopurinol CHELSIE, Iron pill and Vit C Allergic Rhinitis, Loratadine Hx/o Bradycardia/SSS pending pacemaker placement per (he sees a compliance representative in [place]) CKD Stage 3 (no baseline) Plan: He is much improved clinically Continue current treatment Routine AM Labs Lasix drip with hctz, d/c tonight PT/OT consult DVT ppx: already on eliquis SW/CM for d/c planning Additional orders as above Code status:1 Prognosis is guarded Patient follows Dr. Silverio in [place] for routine heart care. He is scheduled to have a cardiac device placement (likely AICD given his hx/o HF from probable ischemic cardiomyopathy) on 16 April.
[2017-05-07] MEDS: CAYENNE PO SCH (14:03)
[2017-05-07] MEDS: [UNRECOGNIZED DRUG - OTHER] PO SCH (14:03)
[2017-05-07] MEDS: Flaxseed Oil 1,000 MG PO SCH (14:04)
[2017-05-07] MEDS: Furosemide 100 MG in Sodium Chloride 0.9% 90 ML IV SCH (15:03)
[2017-05-07] MEDS ORDERED: guaiFENesin 600 MG Tab.ER PO ONE (16:49)
--- NOTE | 2017-05-07 17:55 | CR ---
Chest: Portable view of the chest was obtained. Comparison: No previous study. Heart is enlarged. Upper mediastinum is within normal limits for portable technique. Slight density is noted within the left midlung most likely due to scarring or atelectasis. Lungs otherwise are clear. Bony structures are grossly intact. Impression: 1. Cardiomegaly and other incidental findings. Nothing acute is definitely seen. Diagnostic code #2
[2017-05-08] MEDS: Hydrochlorothiazide 12.5 MG Cap PO SCH (05:06)
[2017-05-08] MEDS: Multivitamins,Therapeutic Tab PO SCH (08:04)
[2017-05-08] MEDS: Simvastatin 10 MG Tab PO SCH (08:05)
[2017-05-08] MEDS: Fish Oil/Omega-3 Fatty Acids 1 Gm Cap PO SCH (08:05)
[2017-05-08] MEDS: Allopurinol 100 MG Tab PO SCH (08:05)
[2017-05-08] MEDS: Apixaban 5 MG Tab PO SCH (08:05)
[2017-05-08] MEDS: Aspirin 81 MG Tab.EC PO SCH (08:05)
[2017-05-08] MEDS: Ferrous Sulfate 325 MG Tab PO SCH (08:05)
[2017-05-08] MEDS: Calcium Carbonate/Vitamin D3 1500 MG-200 Units Tab PO SCH (08:05)
[2017-05-08] MEDS: glipiZIDE 5 MG Tab.ER PO SCH (08:05)
[2017-05-08] MEDS: Ascorbic Acid 500 MG Tab PO SCH (08:05)
[2017-05-08] MEDS: Loratadine 10 MG Tab PO SCH (08:05)
[2017-05-08] MEDS: Isosorbide Mononitrate 30 MG Tab.ER PO SCH (08:06)
[2017-05-08] MEDS: Insulin Aspart 100 Units/ML 3 ML Pen SUBCUT SCH (08:07)
[2017-05-08] MEDS: Amiodarone 200 MG Tab PO SCH (08:07)
[2017-05-08 08:08] VITALS: BP 149/74
[2017-05-08] MEDS: CAYENNE PO SCH (08:11)
[2017-05-08] MEDS: [UNRECOGNIZED DRUG - OTHER] PO SCH (08:11)
[2017-05-08] MEDS: Flaxseed Oil 1,000 MG PO SCH (08:12)
[2017-05-08] MEDS: Metoprolol Succinate 25 MG Tab.ER PO SCH (08:14)
[2017-05-08] MEDS ORDERED: Furosemide 40 MG Tab PO SCH (09:00)
[2017-05-08] MEDS ORDERED: guaiFENesin 600 MG Tab.ER PO SCH (09:00)
[2017-05-08] MEDS: Formoterol/Mometasone 200-5 MCG 8.8 GM Inhaler IH SCH (09:18)
--- NOTE | 2017-05-08 09:54 | CR ---
Chest: Two views of the chest were obtained. Comparison: Previous chest x-ray of 05/06/17. Heart is enlarged. Lungs are clear with no acute infiltrates. Bony structures are unremarkable. Impression: 1. Stable cardiomegaly. Nothing acute is identified on two-view chest x-ray. Diagnostic code #2
[2017-05-08] MEDS ORDERED: Azithromycin 500 MG in Sodium Chloride 0.9% 250 ML IV ONE (10:10)
--- NOTE | 2017-05-08 13:44 | PCM.DCSUM1 ---
Discharge Summary - Hospital Course Brief History: This is a 71-year-old elderly white male with past medical history of asthma/COPD, chronic atrial fibrillation on amiodarone and eliquis, goutiron deficiency anemia, allergic rhinitis, hyperlipidemia/coronary artery disease, and type 2 diabetes who comes in to the emergency department with complaints of difficulty breathing and was admitted for acute congestive heart failure. - Discharge Data Discharge Date: 05/08/17 Discharge Disposition: Home, Self-Care 01 Condition: Good - Discharge Diagnosis/Problem(s) (1) Congestive heart failure SNOMED Code(s): 92508053 ICD Code: I50.9 - HEART FAILURE, UNSPECIFIED Status: Acute Qualifiers: Congestive heart failure type: unspecified congestive heart failure type Congestive heart failure chronicity: acute on chronic Qualified Code(s): I50.9 - Heart failure, unspecified (2) Bronchitis SNOMED Code(s): 38102221 ICD Code: J40 - BRONCHITIS, NOT SPECIFIED ACUTE OR CHRONIC Status: Acute (3) Elevated troponin SNOMED Code(s): 742625027, 079055043 ICD Code: R74.8 - ABNORMAL LEVELS OF OTHER SERUM ENZYMES Status: Resolved (4) Leukocytosis SNOMED Code(s): 975333396, 526169398 ICD Code: D72.829 - ELEVATED WHITE BLOOD CELL COUNT, UNSPECIFIED Status: Acute Qualifiers: Leukocytosis type: unspecified Qualified Code(s): D72.829 - Elevated white blood cell count, unspecified - Patient Summary/Data Operative Procedure(s) Performed: None Complications: None Consults: Consultations 05/06/17 18:11 Consult to Case Management [CONS] Routine Consult to Fuel Conversion Technician [CONS] Routine OT Evaluation and Treatment [CONS] Routine PT Evaluation and Treatment [CONS] Routine Respiratory Care Assess and Treatment [CONS] Routine Hospital Course: Patient was primarily admitted for medical management of acute congestive heart failure. Patient carried a history of heart failure with unknown EF. On admission he was found to have a BNP of almost 3000 with slight elevation of troponins with clinical signs of volume overload. His chest x-ray showed pulmonary congestion. The patient was put on heart failure protocol to include Lasix drip, thiazide diuretic, salt and fluid daily restriction. Slowly the patient improved on this regimen. His hospital course was fairly uncomplicated with the exception of a cough which we felt he might have had bronchitis given his history of pulmonary insufficiency. However, patient was given decongestant/expectorant along with intravenous azithromycin to improve his symptom. The rest of his chronic medical illness remained stable during this admission. Clinically the patient looks very stable. He is now ready for discharge. He will be released with low-dose metolazone 2.5 mg by mouth to take: Monday and Monday. He is to complete an additional course of azithromycin 250 mg po for 4 more days. He will also get Mucinex 1200 mg by mouth twice a day as needed for cough and chest congestion. Patient was advised to follow-up with his heart doctor as initially scheduled on 16 of April for cardiac device placement. He is to follow dietary heart failure recommendations. And most importantly, he is to call his primary care doctor for any questions or concerns right after discharge. On the day of discharge, we recommend against driving but to remain at bed rest with light duty for the next 3 days. The patient expressed understanding and in agreement so with the plans as discussed above. All questions were answered. - Patient Instructions Diet: Heart Healthy Diet, Usual Diet as Tolerated, Low Sodium Fluid Restriction: 2000 mL Activity: As Tolerated Driving: Do Not Drive Showering/Bathing: May Shower Notify Provider of: Fever, Increased Pain, Swelling and Redness, Nausea and/or Vomiting Other/Special Instructions: - Please take all medications as directed. - Recommend 2 grams salt and 2L fluid daily resctriction. - Take to 2 pills of your lasix for sudden shortness of breath or increased edema. - Keep your follow- up cardiac appointment scheduled for the 16 of April. - Call your family doctor for any questions or concerns after discharge - Discharge Plan Prescriptions/Med Rec: Azithromycin [IJD: Azithromycin] 250 mg PO DAILY #4 tab Metolazone [Zaroxolyn] 2.5 mg PO ASDIRECTED #90 tablet guaiFENesin [Mucinex] 1,200 mg PO BID #60 tbmp.12hr Home Medications: Home Meds Albuterol [Proventil HFA] 6.7 gm INH Q4H PRN 05/06/17 [History] Allopurinol [Zyloprim] 100 mg PO DAILY 05/06/17 [History] Amiodarone [Cordarone] 200 mg PO DAILY 05/06/17 [History] Apixaban [Eliquis] 5 mg PO BID 05/06/17 [History] Ascorbic Acid [Vitamin C] 500 mg PO DAILY 05/06/17 [History] Aspirin [Halfprin] 81 mg PO DAILY 05/06/17 [History] Calcium Carbonate/Vitamin D2 [Calcium Oys Shell 250 MG] 1 each PO DAILY [History] Cayenne 1,000 mg PO DAILY 05/06/17 [History] Cinnamon Bark/Chromium Picolin [Cinnamon Plus Chromium Capsule] 1 each PO DAILY 05/06/17 [History] Ferrous Sulfate 325 mg PO DAILY 05/06/17 [History] Flaxseed Oil 1,000 mg PO DAILY 05/06/17 [History] Fluticasone/Salmeterol [Fluticasone-Salmeterol 113-14] 1 each IH BID 05/06/17 [ History] Furosemide 40 mg PO DAILY 05/06/17 [History] Isosorbide Mononitrate [Isosorbide Mononitrate ER] 30 mg PO DAILY 05/06/17 [ History] Loratadine [Claritin] 10 mg PO DAILY 05/06/17 [History] Metoprolol Succinate [Toprol Xl] 25 mg PO DAILY 05/06/17 [History] Multivitamin [Multivitamins] 1 tab PO DAILY 05/06/17 [History] Otter-3 Fatty Acids/Fish Oil [Cvs Fish Oil 1,000 mg Softgel] 1,000 mg PO BID 11/22 [History] Sodium Chloride [Saline Nasal Briggs] 2 sprays NS Q2H PRN 05/06/17 [History] atorvaSTATin [Lipitor] 10 mg PO DAILY 05/06/17 [History] glipiZIDE [Glipizide ER] 5 mg PO DAILY 05/06/17 [History] Azithromycin [IJD: Azithromycin] 250 mg PO DAILY #4 tab 05/08/17 [Rx] Metolazone [Zaroxolyn] 2.5 mg PO ASDIRECTED #90 tablet 05/08/17 [Rx] guaiFENesin [Mucinex] 1,200 mg PO BID #60 tbmp.12hr 05/08/17 [Rx] Patient Handouts: Heart-Healthy Eating Plan, [id number], Heart Failure, Easy- to-Read, Apixaban oral tablets Referrals: PCP,Not In Area [Primary Care Provider] - - Discharge Summary/Plan Comment DC Time >30 min.: Yes (45 mins) Discharge Summary/Plan Comment: Discharge to Home - General Info Date of Service: 05/08/17 Admission Dx/Problem (Free Text: Admission Diagnosis/Problem Admission Diagnosis/Problem Congestive heart failure Subjective Update: Follow Up Functional Status: Reports: pain controlled, tolerating diet, ambulating, urinating, new symptoms - Review of Systems General: Denies: Fever, Weakness, Fatigue, Malaise, Chills HEENT: Reports: no symptoms Pulmonary: Reports: cough, sputum. Denies: shortness of breath, wheezing Cardiovascular: Denies: Chest Pain, Palpitations, Dyspnea on Exertion, Edema, Lightheadedness Gastrointestinal: Denies: Abdominal pain, Difficulty swallowing, Nausea, Vomiting Genitourinary: Denies: no symptoms Musculoskeletal: Denies: no symptoms Skin: Denies: no symptoms Neurological: Denies: Confusion, Dizziness, Difficulty Walking, Weakness, Gait Disturbance Psychiatric: Denies: depression, anxiety, hallucinations - Patient Data Vitals - Most Recent: Last Vital Signs Temp 36.3 C 05/08/17 08:00 Pulse 70 05/08/17 12:00 Resp 22 H 05/08/17 12:00 BP 149/74 H 05/08/17 08:14 Pulse Ox 95 05/08/17 12:00 Weight - Most Recent: 119.794 kg I&O - Last 24 hours: Intake & Output 05/07/17 05/08/17 05/08/17 22:59 06:59 14:59 Intake Total 718 520 548 Output Total 290 525 Balance 428 520 23 Lab Results - Last 24 hrs: Laboratory Results - last 24 hr 05/07/17 05/08/17 05/08/17 Range/Units 20:49 05:47 05:48 WBC 17.04 H (4.23-9.07) K/mm3 RBC 3.49 L (4.63-6.08) M/mm3 Hgb 10.6 L (13.7-17.5) gm/L Hct 33.2 L (40.1-51.0) % MCV 95.1 H (79.0-92.2) fl MCH 30.4 (25.7-32.2) pg MCHC 31.9 L (32.2-35.5) g/dl RDW Std Deviation 52.7 H (35.1-43.9) fL Plt Count 145 L (163-337) K/mm3 MPV 11.7 (9.4-12.3) fl Neut % (Auto) 87.7 H (34.0-67.9) % Lymph % (Auto) 5.8 L (21.8-53.1) % Smyth % (Auto) 6.0 (5.3-12.2) % Eos % (Auto) 0.1 L (0.8-7.0) Baso % (Auto) 0.1 (0.1-1.2) % Neut # (Auto) 14.95 H (1.78-5.38) K/mm3 Lymph # (Auto) 0.99 L (1.32-3.57) K/mm3 Smyth # (Auto) 1.03 H (0.30-0.82) K/mm3 Eos # (Auto) 0.01 L (0.04-0.54) K/mm3 Baso # (Auto) 0.01 (0.01-0.08) K/mm3 Manual Slide Review Abnormal smear Sodium (136-145) mEq/L Potassium (3.5-5.1) mEq/L Chloride (98-107) mEq/L Carbon Dioxide (21-32) mEq/L Anion Gap (5-15) BUN (7-18) mg/dL Creatinine (0.7-1.3) mg/dL Est Cr Clr Drug Dosing mL/min Estimated GFR (MDRD) (>60) mL/min BUN/Creatinine Ratio (14-18) Glucose (80-115) mg/dL POC Glucose 360 H 197 H (80-115) mg/dL Calcium (8.5-10.1) mg/dL Magnesium (1.8-2.4) mg/dl C-Reactive Protein (<1.0) mg/dL 05/08/17 Range/Units 05:48 WBC (4.23-9.07) K/mm3 RBC (4.63-6.08) M/mm3 Hgb (13.7-17.5) gm/L Hct (40.1-51.0) % MCV (79.0-92.2) fl MCH (25.7-32.2) pg MCHC (32.2-35.5) g/dl RDW Std Deviation (35.1-43.9) fL Plt Count (163-337) K/mm3 MPV (9.4-12.3) fl Neut % (Auto) (34.0-67.9) % Lymph % (Auto) (21.8-53.1) % Smyth % (Auto) (5.3-12.2) % Eos % (Auto) (0.8-7.0) Baso % (Auto) (0.1-1.2) % Neut # (Auto) (1.78-5.38) K/mm3 Lymph # (Auto) (1.32-3.57) K/mm3 Smyth # (Auto) (0.30-0.82) K/mm3 Eos # (Auto) (0.04-0.54) K/mm3 Baso # (Auto) (0.01-0.08) K/mm3 Manual Slide Review Sodium 135 L (136-145) mEq/L Potassium 4.2 (3.5-5.1) mEq/L Chloride 102 (98-107) mEq/L Carbon Dioxide 24 (21-32) mEq/L Anion Gap 13.2 (5-15) BUN 69 H (7-18) mg/dL Creatinine 2.1 H (0.7-1.3) mg/dL Est Cr Clr Drug Dosing 35.93 mL/min Estimated GFR (MDRD) 31 (>60) mL/min BUN/Creatinine Ratio 32.9 H (14-18) Glucose 189 H (80-115) mg/dL POC Glucose (80-115) mg/dL Calcium 8.5 (8.5-10.1) mg/dL Magnesium 2.4 (1.8-2.4) mg/dl C-Reactive Protein 14.3 H* (<1.0) mg/dL Med Orders - Current: Current Medications Acetaminophen (Tylenol) 650 mg PO Q4H PRN PRN Reason: Pain (Mild 1-3)/fever Hydrocodone Bitart/Acetaminophen ([place] 325-5 Mg) 1 tab PO Q4H PRN PRN Reason: Pain (moderate 4-6) Albuterol (Proventil Hfa) 0 gm INH Q4H PRN PRN Reason: Wheezing Albuterol/Ipratropium (Duoneb 3.0-0.5 Mg/3 Ml) 3 ml NEB Q4H PRN PRN Reason: Shortness Of Breath/wheezing Last Admin: 05/07/17 20:24 Dose: 3 ml Allopurinol (Zyloprim) 100 mg PO DAILY [facility] Last Admin: 05/08/17 08:05 Dose: 100 mg Amiodarone HCl (Cordarone) 200 mg PO DAILY [facility] Last Admin: 05/08/17 08:07 Dose: 200 mg Apixaban (Eliquis) 5 mg PO BID [facility] Last Admin: 05/08/17 08:05 Dose: 5 mg Ascorbic Acid (Vitamin C) 500 mg PO DAILY [facility] Last Admin: 05/08/17 08:05 Dose: 500 mg Aspirin (Halfprin) 81 mg PO DAILY [facility] Last Admin: 05/08/17 08:05 Dose: 81 mg Bisacodyl (Dulcolax) 5 mg PO DAILY PRN PRN Reason: Constipation Calcium Carbonate (Calcium Carbonate/Vitamin D 1500 Mg-200 Unit) 1 tab PO DAILY [facility] Last Admin: 05/08/17 08:05 Dose: 1 tab Dextrose/Water (Dextrose 50% In Water) 50 ml IVPUSH ASDIRECTED PRN PRN Reason: Hypoglycemia Docusate Sodium (Colace) 100 mg PO BID PRN PRN Reason: Constipation Ferrous Sulfate (Ferrous Sulfate) 325 mg PO DAILY [facility] Last Admin: 05/08/17 08:05 Dose: 325 mg Fish Oil (Fish Oil) 1 gm PO BID [facility] Last Admin: 05/08/17 08:05 Dose: 1 gm Furosemide (Lasix) 40 mg PO DAILY [facility] Last Admin: 05/08/17 08:05 Dose: 40 mg Glipizide (Glucotrol Xl) 5 mg PO DAILY [facility] Last Admin: 05/08/17 08:05 Dose: 5 mg Guaifenesin (Mucinex) 1,200 mg PO BID [facility] Last Admin: 05/08/17 08:06 Dose: 1,200 mg Hydralazine HCl (Apresoline) 20 mg IVPUSH Q4H PRN PRN Reason: Hypertension Hydrochlorothiazide (Hydrochlorothiazide) 12.5 mg PO BIDDIURETIC [facility] Last Admin: 05/08/17 05:06 Dose: 12.5 mg Promethazine HCl 12.5 mg/ (Sodium Chloride) 50.5 mls @ 100 mls/hr IV Q6H PRN PRN Reason: Nausea/Vomiting Furosemide 100 mg/ Sodium (Chloride) 100 mls @ 4 mls/hr IV TITRATE [facility] PRN Reason: Protocol Last Admin: 05/07/17 15:03 Dose: 5 mls/hr Insulin Aspart (Novolog) 0 unit SUBCUT ACBREAKFASTANDBED [facility] PRN Reason: Protocol Last Admin: 05/08/17 08:07 Dose: 2 units Isosorbide Mononitrate (Imdur) 30 mg PO DAILY [facility] Last Admin: 05/08/17 08:06 Dose: 30 mg Loratadine (Claritin) 10 mg PO DAILY [facility] Last Admin: 05/08/17 08:05 Dose: 10 mg Lorazepam (Ativan) 0.5 mg IV Q6H PRN PRN Reason: Anxiety Magnesium Sulfate (Pharmacy To Dose - Magnesium Replacement) 1 dose .XX ASDIRECTED [facility] Metoprolol Succinate (Toprol Xl) 25 mg PO DAILY [facility] Last Admin: 05/08/17 08:14 Dose: 25 mg Metoprolol Tartrate (Lopressor) 5 mg IVPUSH Q4H PRN PRN Reason: Tachycardia Mometasone Furoate/Formoterol Fumar (Dulera 200-5 Mcg) 1 puff IH BID [facility] Last Admin: 05/08/17 09:18 Dose: 1 puff Morphine Sulfate (Morphine) 1 mg IVPUSH Q4H PRN PRN Reason: Pain (severe 7-10) Stop: 05/10/17 18:09 Last Admin: 05/06/17 20:44 Dose: 1 mg Multivitamins (Thera) 1 each PO DAILY [facility] Last Admin: 05/08/17 08:04 Dose: 1 each Ondansetron HCl (Zofran) 4 mg IV Q6H PRN PRN Reason: Nausea/Vomiting Cayenne 1,000 Mg 0 each PO DAILY [facility] Last Admin: 05/08/17 08:11 Dose: Not Given Cinnamon Plus (Chromium Ca) 0 each PO DAILY [facility] Last Admin: 05/08/17 08:11 Dose: Not Given Flaxseed Oil 1,000 (Mg) 0 each PO DAILY [facility] Last Admin: 05/08/17 08:12 Dose: Not Given Polyethylene Glycol (Miralax) 17 gm PO DAILY PRN PRN Reason: Constipation Potassium Chloride (Pharmacy To Dose - Potassium Replacement) 1 dose .XX ASDIRECTED [facility] Senna/Docusate Sodium (Senna Plus) 1 tab PO BID PRN PRN Reason: Constipation Simvastatin (Zocor) 10 mg PO DAILY [facility] Last Admin: 05/08/17 08:05 Dose: 10 mg Sodium Chloride (Saline Flush) 10 ml FLUSH ASDIRECTED PRN PRN Reason: Keep Vein Open Sodium Chloride (Deuel Nasal Briggs) 0 ml NASBOTH Q2H PRN PRN Reason: Congestion Temazepam (Restoril) 7.5 mg PO BEDTIME PRN PRN Reason: Sleep Discontinued Medications Albuterol (Proventil Hfa) 0 gm INH Q4H PRN PRN Reason: Wheezing Albuterol/Ipratropium (Duoneb 3.0-0.5 Mg/3 Ml) 3 ml NEB ONETIME ONE Stop: 05/06/17 13:24 Last Admin: 05/06/17 13:31 Dose: 3 ml Albuterol/Ipratropium (Duoneb 3.0-0.5 Mg/3 Ml) Confirm Administered Dose 3 ml .ROUTE .STK-MED ONE Stop: 05/06/17 13:28 Last Admin: 05/06/17 13:41 Dose: Not Given Enoxaparin Sodium (Lovenox) 40 mg SUBCUT DAILY [facility] Furosemide (Lasix) Confirm Administered Dose 80 mg .ROUTE .STK-MED ONE Stop: 05/06/17 13:10 Last Admin: 05/06/17 13:34 Dose: Not Given Furosemide (Lasix) 80 mg IVPUSH NOW ONE Stop: 05/06/17 13:09 Last Admin: 05/06/17 13:39 Dose: 80 mg Furosemide (Lasix) Confirm Administered Dose 80 mg .ROUTE .STK-MED ONE Stop: 05/06/17 13:12 Last Admin: 05/06/17 13:34 Dose: Not Given Guaifenesin (Mucinex) 1,200 mg PO ONETIME ONE Stop: 05/07/17 16:50 Last Admin: 05/07/17 17:02 Dose: 1,200 mg Magnesium Sulfate 2 gm/ Premix 50 mls @ 50 mls/hr IV ONETIME ONE Stop: 05/06/17 19:59 Last Admin: 05/06/17 19:47 Dose: 50 mls/hr Azithromycin 500 mg/ Sodium (Chloride) 250 mls @ 250 mls/hr IV ONETIME ONE Stop: 05/08/17 11:09 Last Admin: 05/08/17 10:17 Dose: 250 mls/hr Methylprednisolone Sodium Succinate (Solu-Medrol) 125 mg IVPUSH ONETIME ONE Stop: 05/06/17 13:41 Last Admin: 05/06/17 13:57 Dose: 125 mg Nitroglycerin (Nitrostat) 0.4 mg SL ONETIME ONE Stop: 05/06/17 13:15 Last Admin: 05/06/17 13:40 Dose: 0.4 mg Sodium Chloride (Saline Flush) 10 ml FLUSH ASDIRECTED PRN PRN Reason: Keep Vein Open Last Admin: 05/06/17 13:39 Dose: 10 ml - Exam General: Reports: alert, oriented, cooperative, no acute distress HEENT: Reports: Pupils equal, Pupils reactive, EOMI, Mucous membr. moist/pink Neck: Reports: supple, trachea midline, no JVD, no thyromegaly Lungs: Reports: Clear to auscultation, Normal respiratory effort Cardiovascular: Reports: Irregular Rhythm Abdomen: Reports: bowel sounds present, soft, no tenderness, no distension (Male) Exam: Deferred Rectal (Males) Exam: Deferred Back Exam: Reports: Normal Inspection, Decreased Range of Motion Extremities: Reports: no edema, normal pulses, no tenderness/swelling, no clubbing, no cyanosis, no calf tenderness Skin: Reports: warm, dry, intact Neurological: Reports: no new focal deficit Psy/Mental Status: Reports: alert, normal affect, normal mood *Q Meaningful Use (DIS) - VTE *Q VTE Criteria *Q: - Stroke *Q Stroke Criteria *Q: - AMI *Q AMI Criteria *Q:
[2017-05-08] MEDS ORDERED: Bumetanide 1 MG/4 ML MDV IVPUSH ONE (14:00)
== END 2017-05-08 14:36 | disposition home or self-care (01) | DRG 293 ==
LOC: JD.ED 13:03 → UNDOADMIN 16:25 → JD.ICU 16:25 → UNDODISIN 05-08 14:36
PROVIDERS: ADMIT Internal Medicine; ATTEND Internal Medicine
PROC: 0T9B70Z Drainage of Bladder with Drainage Device, Via Natural or Artificial Opening (ICD-10-PCS; principal; 2017-05-06)
DX: I50.43 Acute on chronic combined systolic (congestive) and diastolic (congestive) heart failure (principal); I48.2 Chronic atrial fibrillation; R09.02 Hypoxemia; D50.9 Iron deficiency anemia, unspecified; E78.5 Hyperlipidemia, unspecified; I25.10 Atherosclerotic heart disease of native coronary artery without angina pectoris; E11.9 Type 2 diabetes mellitus without complications; J40 Bronchitis, not specified as acute or chronic; R74.8 Abnormal levels of other serum enzymes; D72.829 Elevated white blood cell count, unspecified; J44.9 Chronic obstructive pulmonary disease, unspecified; Z87.891 Personal history of nicotine dependence; N18.3 Chronic kidney disease, stage 3 (moderate); Z79.4 Long term (current) use of insulin
CPT/HCPCS: 36415; 36600; 71010; 80053; 82803; 83605; 83880; 84484; 85025; 85610; 86140; 87040; 93005; 94664; 96374; 96375; 99285; A9270; J1940; J2930; J7050; 51702; 71020; 71020-26; 80048; 80061; 82553; 82962; 83036; 83735; 84439; 84443; 94640; 94640-76; 94667; 97162-GP; 97165-GO; 99223; 99233; 99239; J0456; J1815-GY; J2270; J3475; J7030